=== PATIENT | male | born 1970 | race Caucasian/White ===

== ENCOUNTER → 2020-06-16 11:58 | Outpatient (CLI) | payer OTHER, SELFPAY ==
--- NOTE | ~2020-06-16 | XR_ITS ---
XR lumbar spine 2-3V DATE: 06/16/2020 12:19 INDICATION: Low back pain. Lumbago. TECHNIQUE: Standing AP and lateral and coned lateral lumbosacral views COMPARISON: None FINDINGS: There is grade 1 anterolisthesis at L4-5 due to degenerative change at the apophyseal joints. There is mild rotatory dextroscoliosis of the lumbar spine. There is minimal degenerative spurring of the lumbar spine and mild degenerative disc disease, relati vely sparing L5-S1. No fracture or bone destruction is evident. The included lower thoracic and lumbar pedicles are intac t. The sacroiliac joints are normal. IMPRESSION: Mild rotatory dextroscoliosis Mild degenerative change Grade 1 anterolisthesis at L4-5 due to degenerative change at the apophyseal joints Reviewed, dictated and finalized at location B. IMPRESSION: Mild rotatory dextroscoliosis Mild degenerative change Grade 1 anterolisthesis at L4-5 due to degenerative change at the apophyseal vince ints
== END ==
PROVIDERS: PCP Family Medicine; Visit Provider Family Medicine
DX: M54.5 Low back pain (principal)
CPT/HCPCS: 72100

== ENCOUNTER → 2022-05-16 11:18 | Outpatient (CLI) | payer OTHER, SELFPAY ==
--- NOTE | ~2022-05-16 | XR_ITS ---
XR ankle RT min 3V DATE: 05/16/2022 12:21 INDICATION: Right ankle pain TECHNIQUE: 4 views COMPARISON: None FINDINGS: Mild plantar calcaneal enthesopathy without associated erosive change or periostitis. No fracture or dislocation of the ankle or disruption of the ankle mortise is detected. No periosteal reaction or bone destruction. IMPRESSION: Mild plantar calcaneal enthesopathy Reviewed, dictated and finalized at location B.
--- NOTE | ~2022-05-16 | XR_ITS ---
XR knee LT min 4V DATE: 05/16/2022 12:21 INDICATION: Left knee pain TECHNIQUE: [place] and standing AP, PA and lateral views COMPARISON: None FINDINGS: There is severe loss of joint space the medial compartment, with mild spurring. The lateral compartment joint space is well preserved. There is mild osteoarthritic spurring at the patellofemoral joint. No fracture or dislocation, radiopaque intra-articular loose body or chondrocalcinosis. No periosteal reaction or bone destruction. IMPRESSION: Osteoarthritis, involving severely the medial compartment Reviewed, dictated and finalized at location B.
== END ==
PROVIDERS: PCP Family Medicine; Visit Provider Family Medicine
DX: M17.12 Unilateral primary osteoarthritis, left knee (principal); M77.31 Calcaneal spur, right foot
CPT/HCPCS: 73564; 73610

== ENCOUNTER → 2022-05-17 12:24 | Outpatient (CLI) | payer OTHER, SELFPAY ==
--- NOTE | ~2022-05-17 | XR_ITS ---
XR knee RT min 4V DATE: 05/17/2022 12:42 INDICATION: Right knee pain TECHNIQUE: Standing AP, PA, lateral views. [place] view. COMPARISON: None FINDINGS: There is prominent loss of medial joint space with periarticular spurring. Lateral compartm ent joint space is well preserved, with minimal spurring at the lateral femoral condyle. No fracture or dislocation, periosteal reaction or bone destruction, radiopaque intra-articular loose body or chondrocalcinosis. Mild suprapatellar knee joint effusion is suggested. IMPRESSION: Prominent medial compartment osteoarthritis and suggestion of mild suprapatellar knee derek nt effusion Reviewed, dictated and finalized at location B. IMPRESSION: Prominent medial compartment osteoarthritis and suggestion of mild suprapatellar knee joint effusion
== END ==
PROVIDERS: PCP Family Medicine; Visit Provider Family Medicine
DX: M25.561 Pain in right knee (principal); M17.11 Unilateral primary osteoarthritis, right knee
CPT/HCPCS: 73564